=== PATIENT | female | born 1990 | race Caucasian/White ===

== ENCOUNTER 2022-02-15 18:40 | Outpatient (CLI) | payer BC, SELFPAY ==
[2022-02-15 19:01] LABS: Ionized Calcium* 1.18 mmol/L (1.11-1.30)
[2022-02-15 19:32] LABS: Chloride* 102 mmol/L (96-114)
[2022-02-15 19:33] LABS: Potassium* 3.7 mmol/L (3.6-5.1); Sodium* 137 mmol/L (135-149)
[2022-02-15 19:35] LABS: Creatinine* 0.5 mg/dL (0.5-1.5); Estimated Glomerular Filt Rate 126 ml/min
[2022-02-15 19:36] LABS: Blood Urea Nitrogen* 7 mg/dL (5-24); Calcium* 9.1 mg/dL (8.4-10.6); Carbon Dioxide* 28 mmol/L (20-32); Glucose* 109 mg/dL (60-115)
[2022-02-15 20:11] LABS: Vitamin D 25 Hydroxy* 13 ng/mL (30-80)
== END 2022-02-15 18:41 | disposition home or self-care (01) ==
LOC: LAB 18:43
DX: F33.2 Major depressive disorder, recurrent severe without psychotic features (principal)
CPT/HCPCS: 36415; 80048; 82306; 82330; 84443

== ENCOUNTER 2022-08-09 08:15 | Outpatient (CLI) | payer BC, SELFPAY | END 2022-08-09 08:16 | disposition home or self-care (01) | LOC: NFLDREF 16:36 | PROVIDERS: PCP Physician Assistant Medical; Referring Provider Physician Assistant Medical; Visit Provider Physician Assistant Medical | DX: Z00.00 Encounter for general adult medical examination without abnormal findings (principal); Z13.6 Encounter for screening for cardiovascular disorders; Z13.29 Encounter for screening for other suspected endocrine disorder | CPT/HCPCS: 80053; 80061; 84443 ==

== ENCOUNTER 2022-10-18 13:25 | Outpatient (CLI) | payer BC, SELFPAY ==
--- NOTE | 2022-10-18 13:40 | CRLHL7_ITS ---
For Patients: As a result of the Century Cures Act, medical imaging exams and procedure reports are released immediately into your electronic medical record. You may view this report before your referring provider. If you have questions, please contact your health care provider. BILATERAL SCREENING MAMMOGRAM WITH COMPUTER-AIDED DETECTION TECHNIQUE: CC and MLO views were obtained. These mammographic images have been obtained using full-field digital technique. These mammographic images were interpreted with the benefit of computer-aided detection. COMPARISON FILM: Baseline. FINDINGS: There are scattered areas of fibroglandular density IMPRESSION: There is no radiographic evidence for malignancy. ASSESSMENT: BI-RADS Category 1: Negative RECOMMENDATION: Routine screening mammogram in 1 year. A lay language report of this examination will be provided to the patient. Ishan Jensen M.D. Diagnostic Radiologist [email or web address] ERIKA/Dictated by: Ishan Jensen MD @ 10/19/2022 12:24:00 PM (Electronically Signed)
== END 2022-10-18 13:26 | disposition home or self-care (01) ==
LOC: MAMMO 13:26
PROVIDERS: PCP Physician Assistant Medical; Visit Provider Physician Assistant Medical
DX: Z12.31 Encounter for screening mammogram for malignant neoplasm of breast (principal); Z80.3 Family history of malignant neoplasm of breast
CPT/HCPCS: 77067

== ENCOUNTER 2022-11-23 09:45 | Emergency (ER) | payer BC, SELFPAY ==
[2022-11-23 09:49] VITALS: BP 137/90; PULSE 92; RESP 18; TEMP 36.3; O2SAT 99; BMI 37.2
--- NOTE | 2022-11-23 09:53 | ED_ITS ---
HPI - General Adult General Time Seen by Provider: 09:53 Date Seen: 11/23/22 Chief complaint: Chest Pain Stated complaint: chest pain,shortness of breath Time Seen by Provider: 11/23/22 09:46 Source: patient, RN notes reviewed and old records reviewed Mode of arrival: ambulatory Limitations: no limitations History of Present Illness HPI narrative: Patient is a 32-year-old female coming in with burning substernal chest pain. She ate breakfast at about 6:00 a.m. and this started at about 9. She is not noticing any regurgitant symptoms. She does endorse significant history with swallowing difficulties. It is been aggressive maybe over 2-3 years. She will feel food gets stuck, may vomit or spit up in tell the symptoms relieved. She has had this happen for up to 12 hours. She states this started sometime after the delivery of her child, does remember getting a swallow test which was done here a few years ago. She states she has never had an EGD. She does endorse a history of heartburn. Prior to this burning spell today, has noted this happening after eating at times as well as the dysphagia and reported food obstruction. No abdominal pain, does not think this is her gallbladder. She is not taking any proton pump inhibitors or Pepcid like medications. No current nausea vomiting or fevers, no abdominal symptoms. No respiratory symptoms with this. She is worried that there is something wrong with her esophagus. In her old records, on 11/14/2021 she had a normal double-contrast esophagram. She had normal morphology and width till it E, no stricture or mass. There was no GERD noted. Related Data Home Medications Medication Instructions Recorded Confirmed lorazepam 0.5 mg tablet 0.5 mg PO QDAY PRN 08/04/22 11/23/22 vitamin d PO 08/04/22 09/16/22 Previous Rx's Medication Instructions Recorded bupropion HCl 300 mg 24 hr tablet, 300 mg PO QAM #90 tabs 09/16/22 extended release cholecalciferol (vitamin D3) 1,250 1,250 mcg PO QWEEK #90 tabs 09/16/22 mcg (50,000 unit) tablet citalopram 40 mg tablet 40 mg PO QDAY #90 tabs 09/16/22 naltrexone 50 mg tablet 25 mg (1/2 x 50 mg) PO QDAY #45 05/11/23 tabs trazodone 50 mg tablet 50 mg PO QHS PRN sleep #90 tabs 09/16/22 omeprazole 40 mg capsule,delayed 40 mg PO DAILY #30 caps 11/23/22 release Allergies Allergy/AdvReac Type Severity Reaction Status Date / Time No Known Allergies Allergy Unknown Verified 09/16/22 10:50 Review of Systems Status of ROS: Reports: 6 or more systems reviewed and unremarkable except as noted in History and below [facility] Medical History History of pre-eclampsia ?Z87.59 - Personal history of other complications of , childbirth and the puerperium (ICD-10) Obesity (BMI 30-39.9) ?E66.9 - Obesity, unspecified (ICD-10) History of recurrent urinary tract infection ?Z87.440 - Personal history of urinary (tract) infections (ICD-10) Dyspareunia Anxiety ?F41.9 - Anxiety disorder, unspecified (ICD-10) Unable to eat solid foods ?R63.8 - Other symptoms and signs concerning food and fluid intake (ICD-10) Surgical History History of section ?Z98.891 - History of uterine scar from previous surgery (ICD-10) Family History Mother Breast cancer Family/Other Colon cancer Diabetes Heart disease Father High cholesterol Substance abuse Social History Narrative: ( ernst). two kids ( 6 yo boy, 3 yo girl) works at [employer] work nonsmoker 08/04/2022-denied abuse. Smoking Status: Never smoker How often do you have a drink containing alcohol: 2-4 times a month AUDIT-C Alcohol total score: 2 Non-prescribed substance use: denies use Little interest or pleasure in doing things: several days Feeling down, depressed, or hopeless: several days Exam Const: Vital Signs, click to edit/add: Vital Signs - 24 hr 11/23/22 09:49 Temperature 97.4 F L Pulse Rate [Right Pulse Oximeter] 92 Respiratory Rate 18 Blood Pressure [Ri ght Upper Arm] 137/90 H Pulse Oximetry 99 Oxygen Delivery Me thod Room Air Documenting provider has reviewed patient's vital signs: yes Common normals: no apparent distress, oriented x3, no limitations, healthy appearing, alert and well nourished General appearance: cooperative, comfortable, well kempt and well developed Nutritional appearance: obese HENMT: Common normals: normocephalic, head/scalp atraumatic, hearing grossly normal bilaterally, external ears normal, external nose normal, moist oral mucous membranes, oropharynx normal, dentition normal and gingiva normal Head and scalp: normocephalic and atraumatic Face and sinus: normal facial exam Nose: external nose normal External ear: external ears normal Eye: Common normals: PERRL, EOMs intact bilaterally, conjunctivae normal and no scleral icterus Conjunctiva: conjunctiva(e) normal Pupil: PERRL Neck & C-Spine: Common normals: full ROM, no lymphadenopathy, supple, no meningeal signs, no JVD and thyroid normal Thyroid: thyroid normal Chest: Common normals: inspection of chest normal and palpation of chest normal Resp: Common normals: normal respiratory effort, no retractions, no use of accessory muscles and clear to auscultation bilaterally Auscultation: clear to auscultation bilaterally Cardio: Common normals: no JVD, regular rate, regular rhythm, S1 normal heart sound, S2 normal heart sound, no gallops, no clicks and no murmurs Rate: regular rate Rhythm: regular rhythm Heart sounds: S1 normal and S2 normal GI: Common normals: Normal to inspection, nondistended, normoactive bowel august nds present, soft to palpation, non-tender, no hepatosplenomegaly and no masses Palpation: soft and no hepatosplenomegaly Neuro: Common normals: oriented x3 Sensorium/orientation: alert Meningeal signs: no meningeal signs Psych: Appearance: well kempt Course Course Hospital Course: Her history really seems to be consistent with possible esophageal issues given the food bolus obstruction and pain that will develop after eating. Did discuss possibility of underlying gallbladder issues but she really does not think that that is possible. Will get an EKG and troponin just to ensure no atypical presentation of any cardiac manifestations, also get a portable chest x-ray. I am going to give her 40 mg IV Protonix. Will get a full complement of labs and observe her. I do think it is likely she should probably proceed to having an EGD given the symptoms she is reporting to me. Reevaluation(s) Time of Reevaluation #1: 11:57 Reevaluation #1: Patient is feeling better. Reviewed normal labs, chest x-ray an EKG. At this time, will discharge to home for follow-up with primary care provider and to get scheduled for an EGD which I do recommend. Will place on a proton pump inhibitor. Vital Signs Vital signs: Initial Vital Signs Temperature 97.4 F L 11/23/22 09:49 Temperature Source Temporal Artery Scan 11/23/22 09:49 Pulse Rate 92 11/23/22 09:49 Respiratory Rate 18 11/23/22 09:49 Blood Pressure 137/90 H 11/23/22 09:49 Blood Pressure Mean 105 11/23/22 09:49 Blood Pressure Position Sitting 11/23/22 09:49 Pulse Oximetry 99 11/23/22 09:49 Oxygen Delivery Method Room Air 11/23/22 09:49 Vital Signs Temperature 97.4 F L 11/23/22 09:49 Pulse Rate 92 11/23/22 09:49 Respiratory Rate 18 11/23/22 09:49 Blood Pressure 137/90 H 11/23/22 09:49 Pulse Oximetry 99 11/23/22 09:49 Oxygen Delivery Method Room Air 11/23/22 09:49 Temperature 97.4 F L 11/23/22 09:49 Pulse Rate 92 11/23/22 09:49 Respiratory Rate 18 11/23/22 09:49 Blood Pressure 137/90 H 11/23/22 09:49 Pulse Oximetry 99 11/23/22 09:49 Oxygen Delivery Method Room Air 11/23/22 09:49 Medical Decision Making Lab Data Lab results reviewed: Yes I reviewed the patient's lab results Labs: Lab Results 11/23/22 11/23/22 Range/Units 09:54 10:10 WBC 6.83 (4.50-11.00) K/uL RBC 4.37 (4.00-5.20) m/uL Hgb 12.6 (12.0-16.0) gm/dL Hct 38.7 (33.0-51.0) % MCV 89 (80-100) fL MCH 29 (26-34) pg MCHC 33 (32-36) gm/dL RDW Coeff of [place] 13.8 (11.5-15.5) % Plt Count 302 (140-440) K/uL Neut % (Auto) 61.1 (42.0-72.0) % Lymph % (Auto) 18.7 L (20-44) % [place] % (Auto) 8.1 (0.0-11.0) % Eos % (Auto) 11.0 H (0.0-7.0) % Baso % (Auto) 1.0 (0.0-3.0) % Neut # (Auto) 4.17 (1.7-7.0) K/uL Lymph # (Auto) 1.30 (0.90-2.90) K/uL [place] # (Auto) 0.60 (0.00-0.90) K/UL Eos # (Auto) 0.80 H (0.00-0.50) K/uL Baso # (Auto) 0.07 (0.00-0.30) K/uL Abs Immat Gran (auto) 0.01 (0.00-0.30) K/uL Imm/Tot Granulo (auto) 0.1 % Sodium 137 (135-149) mmol/L Potassium 4.0 (3.6-5.1) mmol/L Chloride 108 (96-114) mmol/L Carbon Dioxide 21 (20-32) mmol/L BUN 13 (5-24) mg/dL Creatinine 0.6 (0.5-1.5) mg/dL Estimated Creat Clear 109.29 Estimated GFR 121 ml/min Glucose 88 (60-115) mg/dL Lactate 0.8 (0.5-1.9) mmol/L Calcium 9.4 (8.4-10.6) mg/dL Total Bilirubin 0.2 (0.1-1.5) mg/dL Direct Bilirubin 0.0 (0.0-0.5) mg/dL AST 29 (12-35) U/L ALT 22 (4-35) U/L Alkaline Phosphatase 89 (40-150) U/L C-Reactive Protein 0.6 (0.5-1.0) mg/dL Total Protein 7.3 (6.0-8.3) g/dL Albumin 4.3 (3.3-5.0) g/dL Lipase 93 (23-300) U/L POC Troponin I 0.00 L (0.01-0.04) ng/ml Imaging Data Chest x-ray: Attestation: I have reviewed the pertinent imaging results. My impression: I see no acute pathology on my preliminary review. Radiologist's impression: Patient: JAKY PRUITT Facility:?[facility] Patient ID:?[id number] Site Patient ID:?[id number]. Site :?[id number] Study:?XRay Chest PORTABLE-11/23/2022 10:25:23 AM Ordering Physician:Madi Covarrubias Final Report: INDICATION: Chest pain. Shortness of breath. TECHNIQUE: AP portable chest. FINDINGS: Clear lungs. Normal heart size and pulmonary vascularity. Normal included sk nik. IMPRESSION: Negative chest. Dictated by Rick Newsome MD @ 11/23/2022 11:09:35 AM (Electronic Signature) ECG Data Attestation: I personally reviewed and interpreted this ECG as follows: (Sinus rhythm, 92 beats per minute, normal EKG. No evidence of any ischemic change or arrhythmia. QT corrected) Prior ECG tracings: not available for review Critical Care Time Critical Care Time Critical Care Time: No Discharge Plan Discharge Clinical Impression: Chest pain due to GERD, Dysphagia Patient Disposition: Home, Self-Care Condition: Stable Instructions: GERD (Gastroesophageal Reflux Disease) (ED), Dysphagia (ED) Additional Instructions: Need to follow up in clinic, get EGD scheduled. Take omeprazole daily until further directed. Follow handouts, try to follow food chewing/eating recommendations in handout to minimize any impaction in esophagus. Activity Level: Activity as Tolerated Prescriptions: New omeprazole 40 mg capsule,delayed release(DR/EC) 40 mg PO DAILY Qty: 30 0RF No Action naltrexone 50 mg tablet 25 mg PO QDAY Qty: 45 0RF Rx Instructions: once a day with bupropion for weight loss bupropion HCl 300 mg tablet extended release 24 hr 300 mg PO QAM Qty: 90 1RF citalopram 40 mg tablet 40 mg PO QDAY Qty: 90 1RF cholecalciferol (vitamin D3) 1,250 mcg (50,000 unit) tablet 1,250 mcg PO QWEEK Qty: 90 3RF trazodone 50 mg tablet 50 mg PO QHS PRN (Reason: sleep) Qty: 90 1RF vitamin d PO lorazepam 0.5 mg tablet 0.5 mg PO QDAY PRN Follow Up/Referrals: Nkechi Nolen PA-C [Primary Care Provider] - Stand Alone Forms: [email or web address] Info Instructions
--- NOTE | 2022-11-23 10:03 | CRLHL7_ITS ---
For Patients: As a result of the Century Cures Act, medical imaging exams and procedure reports are released immediately into your electronic medical record. You may view this report before your referring provider. If you have questions, please contact your health care provider. INDICATION: Chest pain. Shortness of breath. TECHNIQUE: AP portable chest. FINDINGS: Clear lungs. Normal heart size and pulmonary vascularity. Normal included skeleton. IMPRESSION: Negative chest. Dictated by Rick Newsome MD @ 11/23/2022 11:09:35 AM (Electronically Signed)
[2022-11-23 10:19] LABS: Lactate* 0.8 mmol/L (0.5-1.9)
[2022-11-23 10:21] LABS: Basophils Absolute Auto 0.07 K/uL (0.00-0.30); Hematocrit 38.7 % (33.0-51.0); Hemoglobin* 12.6 gm/dL (12.0-16.0); Immature Granulocytes Abs Auto 0.01 K/uL (0.00-0.30); Immature Granulocytes Pct Auto 0.1 %; Lymphocytes Percent Auto 18.7 % (20-44); Mean Corpuscular HGB Conc 33 gm/dL (32-36); Mean Corpuscular Hemoglobin 29 pg (26-34); Mean Corpuscular Volume 89 fL (80-100); Monocytes Percent Auto 8.1 % (0.0-11.0); Neutrophils Absolute Auto 4.17 K/uL (1.7-7.0); Neutrophils Percent Auto 61.1 % (42.0-72.0); Platelet Count* 302 K/uL (140-440); RDW Coefficient of Variation % 13.8 % (11.5-15.5); Red Blood Count 4.37 m/uL (4.00-5.20); White Blood Count* 6.83 K/uL (4.50-11.00)
[2022-11-23 10:22] LABS: Slide Review Reflex No
[2022-11-23] MEDS: PANTOPRAZOLE SODIUM 40 MG INJ IVP (10:28)
[2022-11-23 10:40] LABS: Albumin* 4.3 g/dL (3.3-5.0); Chloride* 108 mmol/L (96-114); Sodium* 137 mmol/L (135-149)
[2022-11-23 10:42] LABS: Creatinine* 0.6 mg/dL (0.5-1.5); Est. Creatinine Clearance* 109.29; Estimated Glomerular Filt Rate 121 ml/min
[2022-11-23 10:43] LABS: Alanine Aminotransferase* 22 U/L (4-35); Alkaline Phosphatase* 89 U/L (40-150); Aspartate Amino Transferase* 29 U/L (12-35); Bilirubin Total* 0.2 mg/dL (0.1-1.5); Blood Urea Nitrogen* 13 mg/dL (5-24); Carbon Dioxide* 21 mmol/L (20-32); Glucose* 88 mg/dL (60-115); Lipase* 93 U/L (23-300); Total Protein* 7.3 g/dL (6.0-8.3)
[2022-11-23 10:44] LABS: Calcium* 9.4 mg/dL (8.4-10.6)
[2022-11-23 10:46] LABS: C Reactive Protein* 0.6 mg/dL (0.5-1.0)
== END 2022-11-23 12:26 | disposition home or self-care (01) ==
PROVIDERS: Emergency Provider Family Medicine; PCP Physician Assistant Medical
DX: K21.9 Gastro-esophageal reflux disease without esophagitis (principal); R07.89 Other chest pain; R13.10 Dysphagia, unspecified
CPT/HCPCS: 36415; 71045; 80053; 82248; 83605; 83690; 84484; 85025; 86140; 93005; 96374; 99284; 99285; C9113

== ENCOUNTER 2023-03-21 08:23 | Outpatient (CLI) | payer BC, SELFPAY | END 2023-03-21 08:24 | disposition home or self-care (01) | PROVIDERS: PCP Physician Assistant Medical; Visit Provider Physician Assistant Medical | DX: R10.9 Unspecified abdominal pain (principal); E55.9 Vitamin D deficiency, unspecified; E66.9 Obesity, unspecified; I10 Essential (primary) hypertension | CPT/HCPCS: 80053; 83690 ==

== ENCOUNTER 2023-07-15 08:17 | Outpatient (CLI) | payer BC, SELFPAY | END 2023-07-15 08:18 | disposition home or self-care (01) | LOC: NFLDREF 07-29 09:04 | PROVIDERS: PCP Physician Assistant Medical; Referring Provider Physician Assistant Medical; Visit Provider Physician Assistant Medical | DX: Z13.220 Encounter for screening for lipoid disorders (principal) | CPT/HCPCS: 80061 ==

== ENCOUNTER 2024-06-06 08:15 | Outpatient (CLI) | payer BC, SELFPAY | END 2024-06-06 08:16 | disposition home or self-care (01) | PROVIDERS: PCP Physician Assistant Medical; Visit Provider Physician Assistant Medical | DX: D64.9 Anemia, unspecified (principal); E07.89 Other specified disorders of thyroid; Z13.220 Encounter for screening for lipoid disorders; Z13.21 Encounter for screening for nutritional disorder; Z13.0 Encounter for screening for diseases of the blood and blood-forming organs and certain disorders involving the immune mechanism | CPT/HCPCS: 80061; 82607; 82947; 83540; 83550; 84443 ==

== ENCOUNTER 2024-06-12 07:59 | Outpatient (CLI) | payer BC, SELFPAY ==
--- NOTE | 2024-06-12 08:15 | CRLHL7_ITS ---
For Patients: As a result of the Century Cures Act, medical imaging exams and procedure reports are released immediately into your electronic medical record. You may view this report before your referring provider. If you have questions, please contact your health care provider. INDICATION: Right thyroid fullness COMPARISON: none TECHNIQUE: Mckinley scale and color Doppler images were acquired of the thyroid gland. FINDINGS: The thyroid gland demonstrates normal uniform echogenicity and has a smooth outer contour. The right lobe measures 4.6 x 1.3 x 1.9 cm and the left lobe measures 5.0 x 1.2 x 1.7 cm in size. Isthmus measures 1 millimeter. There are no suspicious masses or nodules. The color Doppler images demonstrate normal vascularity. There is no evidence of cervical lymphadenopathy or parathyroid mass. IMPRESSION: Normal thyroid ultrasound. Dictated by Ishan Jensen MD @ 06/12/2024 10:13:03 AM (Electronically Signed)
== END 2024-06-12 08:00 | disposition home or self-care (01) ==
LOC: US 08:00
PROVIDERS: PCP Physician Assistant Medical; Visit Provider Physician Assistant Medical
DX: E07.89 Other specified disorders of thyroid (principal)
CPT/HCPCS: 76536